=== PATIENT | female | born 1955 | race Caucasian/White ===

== ENCOUNTER 2024-10-20 13:15 | Emergency (ER) | payer MEDICARE, BC, SELFPAY ==
[2024-10-20 13:26] VITALS: BP 156/85; PULSE 76; RESP 18; TEMP 36.6; O2SAT 99
--- NOTE | 2024-10-20 13:36 | ED.URI ---
HPI - URI/Sore Throat General Chief Complaint: Upper Respiratory Infection Stated Complaint: Headache/Vomiting Time Seen by Provider: 10/20/24 13:36 Source: patient Mode of arrival: ambulatory Limitations: no limitations History of Present Illness HPI Narrative: 69 yo F presents with c/o headache, nausesa and vomiting x 1 this AM Took ibuprofen this morning around 6am and then took motrin 1 hour prior to arrival. +fatigue. hx of migraines but headache does not feel similar. pt has to fly on plane home tomorrow and is worried about nausea. Reports that stomach feels queasy but no abdominal pain. No urinary symptoms. All systems reviewed and negative except as noted above. Related Data Home Medications ?Medication ?Instructions ?Recorded ?Confirmed ?Last Taken ?Type omeprazole 40 mg capsule,delayed mg 10/20/24 Unknown History release Allergies Allergy/AdvReac Type Severity Reaction Status Date / Time No Known Allergies Allergy Verified 10/20/24 13:35 Review of Systems Review of Systems: CONSTITUTIONAL: Denies fever, chills, or sweats. EYES: Denies visual changes, redness, or discharge. ENT: Denies rhinorrhea, congestion, sore throat, or otalgia. CARDIOVASCULAR: Denies chest pain, palpitations, or edema. RESPIRATORY: Denies cough or dyspnea. GASTROINTESTINAL: Denies abdominal pain. Reports nausea, vomiting. Denies diarrhea. GENITOURINARY: Denies dysuria or hematuria. SKIN: Denies rash or itching. MUSCULOSKELETAL: Denies back pain, joint pain, or myalgia. NEUROLOGIC: Denies headache, numbness, or weakness. PSYCHIATRIC: Denies anxiety or depression. All other systems reviewed are negative, except as documented in HPI. PMFSH Comments At time of signature, agree with nursing past medical, surgical, social and family history. There is no relevant family history pertinent to the presenting complaint. Exam Narrative: GENERAL: This is a well-nourished, well-developed patient, patient ill-appearing but no acute distress HEAD: normocephalic, atraumatic. EYES: PERRL. Sclera clear/white. Vision is grossly intact. EARS: External ears normal, auditory canals clear and without drainage, TMs normal without perforation. Hearing grossly intact. NOSE: External nose normal with no obvious nasal discharge, nares without redness, no rhinorrhea. THROAT: Mucous membranes moist, posterior pharynx clear. NECK: Neck supple, non-tender without lymphadenopathy, masses or thyromegaly. CARDIOVASCULAR: Regular rate and rhythm without murmurs, gallops, or rubs. RESPIRATORY: Clear to auscultation. Breath sounds equal bilaterally. No wheezes, rales, or rhonchi. GASTROINTESTINAL: Abdomen soft, non-tender, nondistended. Bowel sounds are active. No hepato-splenomegaly, or palpable masses. No guarding. SKIN: warm, Dry, intact with no suspicious lesions or rash, good texture and turgor. NEURO: awake, alert, and oriented to person, place and time. There were no obvious focal neurologic abnormalities. EXTREMITIES: No joint tenderness, effusion, or edema noted. Course Course Level of Care: Express Care Visit Vital Signs Vital signs: Vital Signs Temperature 36.6 C 10/20/24 13:26 Pulse Rate 76 10/20/24 13:26 Respiratory Rate 18 10/20/24 13:26 Blood Pressure 156/85 H 10/20/24 13:26 Pulse Oximetry 99 10/20/24 13:26 Oxygen Delivery Room Air 10/20/24 13:26 Temperature 36.6 C 10/20/24 13:26 Pulse Rate 76 10/20/24 13:26 Respiratory Rate 18 10/20/24 13:26 Blood Pressure 156/85 H 10/20/24 13:26 Pulse Oximetry 99 10/20/24 13:26 Oxygen Delivery Room Air 10/20/24 13:26 Reviewed MDM - URI/Sore Throat MDM Narrative Medical decision making narrative: Negative influenza and COVID testing. Patient symptoms less than 24 hours. Recommend she year retest in another 24-48 hours. Recommend [id number] medications to treat symptoms. Prescribe Zofran for nausea. Patient well-appearing, nontoxic. Patient is aware of diagnosis, understands and agrees to treatment plan. Anticipatory guidance given. Patient agrees to follow-up as directed and is aware of reasons to seek care at the emergency department. Portions of this record may have been created with voice recognition software Differential Diagnosis Differential diagnosis: Likely upper respiratory infection, sinusitis, viral infection and influenza Lab Data Labs: Lab Results 10/20/24 Range/Units 13:47 POC Influenza A Ag Negative (Negative) POC Influenza B Ag Negative (Negative) POC SARS CoV-2 Ag Negative (Negative) Discharge Plan Discharge Clinical Impression: Acute viral syndrome Patient Disposition: Home, Self-Care Condition: Stable Instructions: Viral Syndrome (ED) Additional Instructions: Your COVID and influenza test were negative today. Your symptoms are viral and may last 7-10 days. Take Tylenol or ibuprofen every 6-8 hours as needed for pain. Take Zofran as needed to treat nausea vomiting. Drink at least 64 oz of water a day. Follow-up with your primary care physician if symptoms are not improving. For any worsening of her symptoms go to the ER. Patient Language: [place] Prescriptions: New ondansetron 4 mg tablet,disintegrating 4 mg PO Q8H PRN (Reason: nausea and vomiting) Qty: 20 0RF No Action omeprazole 40 mg capsule,delayed release(DR/EC) Follow-up/Referrals: PHYSICIAN,LITHODUPLICATOR OPERATOR [Primary Care Provider] - Time of Disposition: 13:57
[2024-10-20 13:48] LABS: EDCOVIDSCREEN Negative (Negative); EDINFLUASCREEN Negative (Negative); EDINFLUBSCREEN Negative (Negative)
[2024-10-20] MEDS: ONDANSETRON HCL ODT 4 MG TABLET SUBLINGUAL (13:48)
== END 2024-10-20 14:01 | disposition home or self-care (01) ==
PROVIDERS: Emergency Provider Nurse Practitioner Family
DX: B34.9 Viral infection, unspecified (principal); Z20.822 Contact with and (suspected) exposure to COVID-19; K21.9 Gastro-esophageal reflux disease without esophagitis
CPT/HCPCS: 87426; 87804; 99203; A9270; G0463